=== PATIENT | female | born 1985 | race Caucasian/White ===

== ENCOUNTER 2016-06-25 08:09 | Emergency (ER) | payer BC, OTHER ==
--- NOTE | 2016-06-25 08:58 | UC ---
General HPI - HPI Summary HPI Summary: PT REPORTS LEFT ARM NUMBNESS/TINGLING INTERMITTENTLY FOR PAST MONTH. EPISODES SEEM TO BE RANDOM AND NOT ASSOCIATED WITH ANY SPECIFIC ACTIVITY. DOES WORK A ACCOUNTING INTERN. SX OCCUR DAILY AND USUALLY SELF RESOLVE AFTER A FEW MINUTES. YESTERDAY FELT A BIT WORSE IN LEFT ELBOW REGION. PT ALSO C/O WAKING UP THIS AM WITH CENTRAL CP. NO RADIATION. NO SOB. MILD NAUSEA. TOO IBUPROFEN AND NOW SX ARE GONE. ALSO FELT BILATERAL CHEEKS WERE NUMB YESTERDAY AND BIT TODAY. PT IS ANXIOUS. - History of Current Complaint Chief Complaint: UCChestPain Stated Complaint: ARM NUMB FACE TINGLE Time Seen by Provider: 06/25/16 08:29 Hx Obtained From: Patient Onset/Duration: Gradual Onset, Lasting Weeks, Still Present Timing: Intermittent Episodes Lasting: Onset Severity: Moderate Current Severity: Moderate Pain Intensity: 4 Associated Signs & Symptoms: Positive: Nausea. Negative: In-Dwelling Medication Device, Palpitations, Recent Medication Changes, Syncope, SOB, Trauma , Vomiting, Wheezing, Weakness - Allergy/Home Medications Allergies/Adverse Reactions: Allergies Allergy/AdvReac Type Severity Reaction Status Date / Time No Known Allergies Allergy Verified 01/28/16 08:38 Home Medications: Home Medications Ibuprofen TAB* [Advil TAB*] 2 tab PO PRN 06/25/16 [History] Levothyroxine TAB* [Synthroid 100 MCG TAB*] 100 mcg PO DAILY 06/25/16 [History Confirmed 06/25/16] PMH/Surg Hx/FS Hx/Imm Hx Endocrine History Of: Reports: Thyroid Disease, Hypothyroidism Denies: Diabetes Cardiovascular History Of: Denies: Cardiac Disorders, Hypertension Respiratory History Of: Denies: COPD, Asthma GI/ History Of: Denies: Ulcer - Surgical History Surgical History: None - Family History Known Family History: Positive: Diabetes Negative: Cardiac Disease, Hypertension Family History: no cardio vascular issues in family lineage - Social History Alcohol Use: Occasionally Substance Use Type: None Smoking Status (MU): Light Every Day Tobacco Smoker Type: Cigarettes Amount Used/How Often: 1/2 PPD Length of Time of Smoking/Using Tobacco: 4 YEARS Have You Smoked in the Last Year: Yes Review of Systems Skin: Negative Respiratory: Negative Cardiovascular: Negative Gastrointestinal: Other - MILD NAUSEA Neurovascular: Decreased Sensation Neurological: Paresthesia Psychological: Anxious All Other Systems Reviewed And Are Negative: Yes Physical Exam Triage Information Reviewed: Yes Appearance: Well-Appearing, No Pain Distress, Well-Nourished Vital Signs: Initial Vital Signs Temp 99.1 F 06/25/16 08:16 Pulse 79 06/25/16 08:16 Resp 18 06/25/16 08:16 BP 169/99 06/25/16 08:16 Pulse Ox 99 06/25/16 08:16 Vital Signs Reviewed: Yes Eyes: Positive: Conjunctiva Clear ENT: Positive: Hearing grossly normal Neck: Positive: Supple Respiratory Exam: Normal Cardiovascular Exam: Normal Abdomen Description: Positive: Soft Musculoskeletal: Positive: No Edema Neurological: Positive: Alert, Other: - CN II-XII GROSSLY INTACT BILATERALLY. NEG PRONATOR DRIFT. NEGATIVE ROMBERG. FINGER TO NOSE INTACT BILATERALLY. HEEL TO VALDES INTACT BILATERALLY.. RAPID ALTERNATING MVMTS INTACT. 5/5 STRENGTH. IS ABLE TO DISTINGUISH SHARP VS DULL LEFT HAND AND FOREARM. Psychological: Positive: Age Appropriate Behavior Skin: Negative: rashes Course/Dx - Differential Dx - Multi-Symptom Differential Diagnoses: Other - ANXIETY, THORACIC OUTLET SYNDROME Provider Diagnoses: LEFT ARM PARESTHESIAS Discharge - Discharge Plan Condition: Stable Disposition: HOME Patient Education Materials: Thoracic Outlet Syndrome (ED), Paresthesia (ED) Referrals: Alan Coy MD [Medical Doctor] - 2 Weeks Additional Instructions: TSH DRAWN TODAY TO ENSURE NORMAL THYROID STATUS. FOLLOW-UP WITH YOUR PCP AT [facility]. YOU WILL ALSO NEED TO MONITOR YOUR BP TO ENSURE IT IS NORMAL. IT WAS ELEVATED TODAY. CALL NEUROLOGY FOR FURTHER EVALUATION OF YOUR LEFT ARM NUMBNESS/TINGLING. YOU MAY HAVE THORACIC OUTLET SYNDROME AND YOU MAY ALSO BENEFIT FROM PT. REFERRAL PROVIDED TODAY. GO TO THE ER WITHOUT FAIL IF YOUR SYMPTOMS WORSEN OR DO NOT IMPROVE.
[2016-06-25 09:16] VITALS: BP 126/81
== END 2016-06-25 09:10 | disposition home or self-care (01) ==
LOC: UCEAST 08:09
DX: R20.2 Paresthesia of skin (principal); R11.0 Nausea; E03.9 Hypothyroidism, unspecified; F17.210 Nicotine dependence, cigarettes, uncomplicated
CPT/HCPCS: 36415; 84443; 93005; 99212; G0463